=== PATIENT | male | born 1990 | race Caucasian/White ===

== ENCOUNTER 2019-02-02 07:42 | Emergency (ER) | payer SELFPAY ==
[2019-02-02 07:48] VITALS: BMI 30.8
[2019-02-02] MEDS ORDERED: SODIUM CHLORIDE 1,000 ML IV STA ×2 (08:24→11:26)
[2019-02-02] MEDS ORDERED: ONDANSETRON 4 MG/2 ML VIAL IVPUSH ONE (08:25)
[2019-02-02] MEDS ORDERED: FAMOTIDINE 20 MG/50 ML IVPB 20 MG/50 ML MG IVPB ONE ×2 (08:25→08:55)
[2019-02-02] MEDS ORDERED: ACETAMINOPHEN 1000 MG/100 ML VIAL (NON FORMULARY) IVPB ONE (08:25)
[2019-02-02 08:36] LABS: BASO % 1.8 % (0-2.0); EOS % 2.6 % (0-4.5); HEMATOCRIT 45.7 % (35.4-49); HEMOGLOBIN 15.9 GM/dL (11.7-16.9); LYMPH % 35.6 % (8-40); MCH 30.7 pg (25.7-33.7); MCHC 34.8 g/dl (32.0-35.9); MEAN CELL VOLUME 88.3 fl (80-96); MONO % 8.7 % (3.8-10.2); NEUT % 51.3 % (42.8-82.8); PLATELET COUNT 237 K/MM3 (134-434); RBC 5.18 M/mm3 (4.00-5.60); RDW 12.3 % (11.9-15.9); WHITE BLOOD COUNT 4.1 K/mm3 (4.0-10.0)
[2019-02-02] MEDS ORDERED: morphine CARPU-JECT 4 MG/1 ML DISP.SYRIN IVPUSH ONE (08:53)
[2019-02-02] MEDS ORDERED: ACETAMINOPHEN INJECTION 100 ML IVPB ONE (08:55)
[2019-02-02] MEDS ORDERED: ONDANSETRON 4 MG/2 ML VIAL ONE (08:55)
[2019-02-02] MEDS ORDERED: morphine SULFATE 4 MG/ML VIAL ONE (08:55)
--- NOTE | 2019-02-02 08:56 | PDOC ---
Attending Attestation - Resident Resident Name: Cornelio La - ED Attending Attestation I have performed the following: I have examined & evaluated the patient, The case was reviewed & discussed with the resident, I agree w/resident's findings & plan, Exceptions are as noted - HPI HPI: 28 yo M history herniated discs presents with abrupt onset severe abd pain to R mid-abdomen started this morning. Woke him from sleep. He states he drank half a bottle of hard liquor last night, drinks like that on weekends typically but not daily. Denies fever, nausea, vomiting, diarrhea. No recent illness. - Physicial Exam PE: GENERAL: Awake, alert, and fully oriented, tearful, visibly uncomfortable HEAD: No signs of trauma EYES: PERRLA, EOMI, sclera anicteric, conjunctiva clear ENT: Auricles normal inspection, hearing grossly normal, nares patent, oropharynx clear without exudates. Moist mucosa NECK: Normal ROM, supple, no lymphadenopathy, JVD, or masses LUNGS: Breath sounds equal, clear to auscultation bilaterally. No wheezes, and no crackles HEART: Regular rate and rhythm, normal S1 and S2, no murmurs, rubs or gallops ABDOMEN: Soft, +RUQ/RLQ tenderness, normoactive bowel sounds. +Guarding, no rebound. No masses EXTREMITIES: Normal range of motion, no edema. No clubbing or cyanosis. No cords, erythema, or tenderness NEUROLOGICAL: Cranial nerves II through XII grossly intact. Normal speech, normal gait. Motor and sensation intact SKIN: Warm, Dry, normal turgor, no rashes or lesions noted. - Medical Decision Making Pt appears extremely uncomfortable, diaphoretic. Concern for acute abdomen, however, based on the location of the pain (mid-abdomen), could be gallstones vs appy vs kidney stone vs pancreatitis. Will do bedside sono to look at gallbladder. Likely CT.
[2019-02-02 09:05] LABS: ALBUMIN 4.1 g/dl (3.4-5.0); ALK PHOS 59 U/L (45-117); ANION GAP 8 MMOL/L (8-16); BILIRUBIN,TOTAL 0.4 mg/dL (0.2-1); BLOOD UREA NITROGEN 13 mg/dL (7-18); CALCIUM 8.6 mg/dL (8.5-10.1); CHLORIDE 107 mmol/L (98-107); CO2 27 mmol/L (21-32); GLUCOSE,RANDOM 97 mg/dL (74-106); LIPASE 203 U/L (73-393); POTASSIUM 3.8 mmol/L (3.5-5.1); SGOT/AST 13 U/L (15-37); SGPT/ALT 23 U/L (13-61); SODIUM 142 mmol/L (136-145); TOT PROT 7.4 g/dl (6.4-8.2)
--- NOTE | 2019-02-02 09:20 | EKG ---
Test Reason : Blood Pressure : / mmHG Vent. Rate : 061 BPM Atrial Rate : 061 BPM P-R Int : 198 ms QRS Dur : 104 ms QT Int : 424 ms P-R-T Axes : 046 076 048 degrees QTc Int : 426 ms NORMAL SINUS RHYTHM NORMAL ECG NO PREVIOUS ECGS AVAILABLE Confirmed by LYLA PEÑA, OBINNA ([id number]) on 02/02/2019 9:20:01 AM Referred By: Confirmed By:OBINNA ARITA MD
--- NOTE | 2019-02-02 09:29 | PDOC ---
History of Present Illness - General Chief Complaint: Pain Stated Complaint: CHRONIC ABN PAIN Time Seen by Provider: 02/02/19 07:58 History Source: Patient - History of Present Illness Initial Comments: 02/02/19 09:11 28m with pmh of disc herniation presents to the ED with abdominal pain, 1010, since waking up from it this morning. Pain doesn't radiate anywhere. Admits to drinking a half-bottle of Gurvinder Walker last night which is not unusual for him on the weekends. Urinated and moved his bowels this morning without any pain exacerbation or remission. Denies nausea/vomiting/diarrhea. Has had milder abdominal pains in the past that self-resolved. No history of gallstones or kidney stones. Past History - Past Medical History Allergies/Adverse Reactions: Allergies Allergy/AdvReac Type Severity Reaction Status Date / Time No Known Allergies Allergy Verified 02/02/19 07:48 Home Medications: Ambulatory Orders Famotidine/Ca Carb/Mag Hydrox [Pepcid Complete Tablet Chew] 1 each PO PRN PRN # 30 tab.chew 02/02/19 Metoclopramide HCl [Reglan] 10 mg PO DAILY #30 tablet 02/02/19 COPD: No - Suicide/Smoking/Psychosocial Hx Smoking History: Never smoked Have you smoked in the past 12 months: No Hx Alcohol Use: No Drug/Substance Use Hx: No Substance Use Type: None Review of Systems - Review of Systems Able to Perform ROS?: Yes Is the patient limited Niuean proficient: No Constitutional: No: Symptoms Reported HEENTM: No: Symptoms Reported Respiratory: No: Symptoms reported Cardiac (ROS): No: Symptoms Reported ABD/GI: Yes: See HPI : No: Symptoms Reported Musculoskeletal: No: Symptoms Reported Integumentary: No: Symptoms Reported All Other Systems: Reviewed and Negative *Physical Exam - Vital Signs Last Vital Signs Temp Pulse Resp BP Pulse Ox 97.9 F 72 18 143/102 H 98 02/02/19 07:45 02/02/19 07:45 02/02/19 07:45 02/02/19 07:45 02/02/19 07:45 - Physical Exam General Appearance: Yes: Nourished, Appropriately Dressed, Moderate Distress HEENT: positive: EOMI, FRANNIE, Normal ENT Inspection Respiratory/Chest: positive: Lungs Clear, Normal Breath Sounds. negative: Chest Tender, Respiratory Distress Cardiovascular: positive: Regular Rhythm, Regular Rate, S1, S2 Gastrointestinal/Abdominal: positive: Tender (mid right sided abdominal pain. Negative Begum's, neg McBurney's, Neg psoas and obturator sign. ), Flat, Soft, Decreased BS. negative: Guarding, Rebound Extremity: positive: Normal Capillary Refill, Normal Inspection, Normal Range of Motion Integumentary: positive: Normal Color, Dry, Warm Neurologic: positive: Fully Oriented, Alert, Normal Mood/Affect, Normal Response , Motor Strength 02/02 ED Treatment Course - LABORATORY CBC & Chemistry Diagram: 02/02/19 08:30 02/02/19 08:30 - ADDITIONAL ORDERS Additional order review: Laboratory Results 02/02/19 08:30 Sodium 142 Potassium 3.8 Chloride 107 Carbon Dioxide 27 Anion Gap 8 BUN 13 Creatinine 1.0 Creat Clearance w eGFR 87.74 Random Glucose 97 Calcium 8.6 Total Bilirubin 0.4 AST 13 L ALT 23 Alkaline Phosphatase 59 Troponin I < 0.02 Total Protein 7.4 Albumin 4.1 Lipase 203 - RADIOLOGY Radiology Studies Ordered: Category Date Time Status ABDOMEN & PELVIS CT WITH CONTR [CT] Stat CT Scan 02/02/19 08:56 Ordered - Medications Given in the ED: ED Medications Discontinued Medications Generic Name Dose Route Start Last Admin Trade Name Freq PRN Reason Stop Dose Admin Acetaminophen 1,000 mg 02/02/19 08:25 02/02/19 09:03 Ofirmev Injection - IVPB 02/02/19 08:26 1,000 mg ONCE ONE Administration Famotidine/Sodium Chloride 20 mg in 50 mls @ 100 mls/hr 02/02/19 08:25 09:03 Pepcid 20 Mg Premixed Ivpb - IVPB 02/02/19 08:54 100 mls/hr ONCE ONE Administration Morphine Sulfate 4 mg 02/02/19 08:53 02/02/19 09:03 Morphine Injection - IVPUSH 02/02/19 08:54 4 mg ONCE ONE Administration Ondansetron HCl 4 mg 02/02/19 08:25 02/02/19 09:03 Zofran Injection IVPUSH 02/02/19 08:26 4 mg ONCE ONE Administration Medical Decision Making - Medical Decision Making 02/02/19 09:38 28m with 10/10 abdominal pain since waking up this morning. Pancreatitis vs appendicitis vs gallstones vs nephrolithiasis vs inferior NE * Pancreatitis is closely considered due to the patient admission of binge drinking alcohol last night. Will rule out with lipase level. * Appendicitis due to the fact that the patient is not hungry and location of the pain and no history of appi. However negative psoas/obturator signs and mcburney point tenderness. Will obtain Ct abdomen and pelvis. * Despite negative mcmurphys, the general location of the pain could be due to gallstones even though patient denies nausea/vomiting. * Kidney stones less likely as the patient has no pain radiating to the flank and no pain on urination either. however will check for blood in urine. Lipase negatiuve. Will obtain Ct abdomen pelvis with contrast, which would reveal any of the above diagnoses. As for inferior Mi this would be an unlikely diagnosis due to the patient's age. EKG: Normal sinus rhythm Normal EKG. Ct pending. 02/02/19 10:22 There is suggestion of a few tiny diverticula in the distal descending and proximal sigmoid colon without gross evidence of acute diverticulitis. Normal-appearing appendix. Tiny fat-containing umbilical hernia. No CT evidence of an acute process in the abdomen pelvis. Correlate clinically to determine further evaluation and follow-up. 02/02/19 10:24 Patient's pain is now 7/[address] scan. ? viral gastro? Will give trial or protonix, ns and reassess. 02/02/19 12:39 Patient feels somewhat better 6/10, able to tolerate food and drink. Asking to go home and follow outpatient with Dr. Pacheco. *DC/Admit/Observation/Transfer Diagnosis at time of Disposition: Abdominal pain - Discharge Dispostion Disposition: HOME Condition at time of disposition: Improved Decision to Admit order: No - Prescriptions Prescriptions: Famotidine/Ca Carb/Mag Hydrox [Pepcid Complete Tablet Chew] 1 each PO PRN PRN # 30 tab.chew PRN Reason: Indigestion Metoclopramide HCl [Reglan] 10 mg PO DAILY #30 tablet - Referrals Referrals: Tim Pacheco MD [Staff Physician] - - Patient Instructions Printed Discharge Instructions: CT Scan of the Abdomen, DI for Abdominal Pain- Adult Additional Instructions: Follow up with Dr. Pacheco within the next 2 days. Come back to the emergency department for any new, worsening or concerning symptoms. 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 - Post Discharge Activity
[2019-02-02] MEDS ORDERED: PANTOPRAZOLE SODIUM 40 MG VIAL IVPUSH ONE (10:28)
[2019-02-02] MEDS ORDERED: PANTOPRAZOLE SODIUM 40 MG/100 ML BAG IVPB ONE (10:45)
[2019-02-02] MEDS ORDERED: METOCLOPRAMIDE HCL INJECTION 10 MG/2 ML VIAL IVPUSH ONE (11:25)
[2019-02-02 11:26] LABS: URINE APPEARANCE CLEAR; URINE BILIRUBIN NEGATIVE (NEGATIVE); URINE COLOR YELLOW; URINE GLUCOSE (UA) NEGATIVE (NEGATIVE); URINE KETONE NEGATIVE (NEGATIVE); URINE LEUK ESTERASE NEGATIVE (NEGATIVE); URINE NITRITE NEGATIVE (NEGATIVE); URINE PROTEIN NEGATIVE (NEGATIVE)
[2019-02-02] MEDS ORDERED: METOCLOPRAMIDE HCL INJECTION 10 MG/2 ML VIAL ONE (11:48)
[2019-02-02 13:04] VITALS: BP 134/94; PULSE 70; TEMP 98
== END 2019-02-02 13:05 | disposition home or self-care (01) ==
LOC: JER 07:42
PROC: 3E033GC Introduction of Other Therapeutic Substance into Peripheral Vein, Percutaneous Approach (ICD-10-PCS; principal; 2019-02-02)
PROC: 3E033NZ Introduction of Analgesics, Hypnotics, Sedatives into Peripheral Vein, Percutaneous Approach (ICD-10-PCS; 2019-02-02)
PROC: 3E033GC Introduction of Other Therapeutic Substance into Peripheral Vein, Percutaneous Approach (ICD-10-PCS; 2019-02-02)
PROC: 3E033GC Introduction of Other Therapeutic Substance into Peripheral Vein, Percutaneous Approach (ICD-10-PCS; 2019-02-02)
PROC: 3E0337Z Introduction of Electrolytic and Water Balance Substance into Peripheral Vein, Percutaneous Approach (ICD-10-PCS; 2019-02-02)
PROC: 3E0337Z Introduction of Electrolytic and Water Balance Substance into Peripheral Vein, Percutaneous Approach (ICD-10-PCS; 2019-02-02)
PROC: 3E033NZ Introduction of Analgesics, Hypnotics, Sedatives into Peripheral Vein, Percutaneous Approach (ICD-10-PCS; 2019-02-02)
DX: R10.9 Unspecified abdominal pain (principal); F10.10 Alcohol abuse, uncomplicated
CPT/HCPCS: 36415; 74177-TC; 80053; 81003; 83690; 84484; 85025; 87086; 93005; 93010; 99284-25; J0131; J7030